=== PATIENT | female | born 1985 | race Hispanic/Latino ===

== ENCOUNTER 2017-12-15 08:06 | Day surgery (SDC) | payer OTHER ==
[2017-12-11 10:38] LABS: Absolute Monocytes 0.3 K/uL (0.1-1.3); Absolute Neutrophil 2.1 K/uL (1.8-8.0); Basophils % 1.4 % (0-1.3); Eosinophils % 1.1 % (0-4.4); Hematocrit 39.4 % (36.0-45.0); Lymphocytes % 45.3 % (15.3-44.8); MCH 26.8 pg (27.0-35.0); MPV 10.1 fL (7.6-11.3); Monocytes % 6.5 % (3.3-12.3); RBC Red Blood Cell Count 4.69 M/uL (3.86-4.86)
[2017-12-11 11:03] LABS: Potassium 3.9 mmol/L (3.5-5.1)
[2017-12-11 11:16] LABS: Albumin 4.1 g/dL (3.4-5.0); Bilirubin Direct 0.2 mg/dL (0-0.2); Bilirubin Total 1.2 mg/dL (0.2-1.0); Protein, Total 8.1 g/dL (6.4-8.2)
[2017-12-15] MEDS ORDERED: CEFOXITIN/SWI 1gm 1 GM/10 ML SYR ONE (08:32)
[2017-12-15] MEDS: Ringers Lactate 1,000 ML IV ONE ×2 (08:43→09:36)
[2017-12-15] MEDS ORDERED: BUPIVACAINE 0.5% PF 10 ML VIAL ONE ×2 (08:52→09:38)
[2017-12-15] MEDS ORDERED: PROPOFOL 200 MG/20 ML VIAL IV ONE (09:17)
[2017-12-15] MEDS ORDERED: LIDOCAINE 2% MPF 5 ML VIAL ONE (09:18)
[2017-12-15] MEDS ORDERED: MIDAZOLAM HCL 2 MG/2 ML INJ ONE (09:18)
[2017-12-15] MEDS ORDERED: FENTANYL CITR 100 MCG/2 ML ONE (09:19)
[2017-12-15] MEDS ORDERED: ONDANSETRON HCL 40 MG/20 ML VIAL ONE (09:20)
[2017-12-15] MEDS ORDERED: ROCURONIUM 50 MG/5 ML VIAL IV ONE (09:20)
[2017-12-15] MEDS ORDERED: DEXAMETHASONE 10 MG/ML VIAL ONE (10:01)
[2017-12-15] MEDS ORDERED: Phenylephrine HCl 10 MG/ML 1 ML VIAL ONE (10:30)
[2017-12-15] MEDS ORDERED: GLYCOPYRROLATE 0.2 MG/ML SYR ONE (10:41)
[2017-12-15] MEDS ORDERED: NEOSTIGMINE 1 MG/ML -5 ML SYRINGE ONE (10:45)
--- NOTE | 2017-12-15 10:51 | P.BOP ---
Preoperative diagnosis: acute cholecystitis, Symptomatic cholelithiasis Postoperative diagnosis: same Primary procedure: Laparoscopic cholecystectomy Parts Counterperson: Christa Mesa (Mary) Estimated blood loss: <10cc Specimen: gb Findings: acute cholecystitis, Symptomatic cholelithiasis Anesthesia: General Complications: None Transferred to: Recovery Room Condition: Good
[2017-12-15] MEDS ORDERED: MEPERIDINE HCL 25 MG/0.5 ML ONE (10:58)
[2017-12-15] MEDS ORDERED: MEPERIDINE HCL 25 MG/0.5 ML IV ONE (10:58)
[2017-12-15] MEDS ORDERED: Ringers Lactate 1,000 ML IV ONE (11:00)
[2017-12-15 12:08] VITALS: TEMP 97.5
[2017-12-15] MEDS ORDERED: CODEINE 30MG/APAP 300MG TAB ONE (12:27)
[2017-12-15 12:41] VITALS: BP 102/61; O2SAT 100
--- NOTE | 2017-12-15 21:48 | OP ---
Date of Procedure: 12/15/2017 Surgeon: Jose Richmond MD [employer] Crew Chief: EDITH Vidal. Preoperative Diagnoses: Acute cholecystitis, symptomatic cholelithiasis. Postoperative Diagnoses: Acute cholecystitis, symptomatic cholelithiasis. Procedure: Laparoscopic cholecystectomy. Estimated Blood Loss: Less than 10 cc. Specimen: Gallbladder. Finding: Acute cholecystitis and symptomatic cholelithiasis. Anesthesia: General plus local. Indication: This is a case of a 32-year-old patient, who comes to us with above diagnosis. Fully ex plained the benefits, alternatives, and risks of laparoscopic, possible open cholecystectomy, which i nclude, but not limited to infection, bleeding, damage to adjacent structures, anesthesia complicatio n, choledocholithiasis, bile leak, pancreatitis, RI, and even . She also understands this may n ot relieve any symptoms. She might need more than one surgical intervention. She understood. Darlin d a consent. Description Of Procedure: The patient was brought to the operating room, placed in supine position. Anesthesia was done without complication. Abdominal area was prepped and draped in a sterile fashio n. Marcaine 0.5% injected for local anesthetic, followed by sharp incision of skin in the infraumbil ical region. Incision was carried down to fascia, which was opened under direct vision. Peritoneum was encountered, opened under direct vision. Vicryl #1 placed inside the fascia. Harjinder trocar was carefully introduced. No bleeding was obtained. After that, I placed 3 more trocars, 5 mm each one of them under direct visualization in the right upper quadrant. Grasper placed in the fundus of the gallbladder, another grasper in the infundibulum. The gallbladder was retracted in the inferolateral fashion exposing the triangle of Calot and obtaining critical view of safety. The cystic duct and c ystic artery were clearly isolated free circumferentially and a connection between those and the gall bladder was clearly identified. I proceeded to ligate those by using at least 3 clips proximal, 1 cl ip distal, ligation in middle. Same was done with the cystic artery. No bile leak. No bleeding. T he gallbladder was removed from liver using Bovie cauterizer and removed from abdominal cavity using an EndoCatch through the umbilical incision. The area was inspected once again. No bile leak. No b leeding. Gallbladder was removed. The gallbladder fossa looked intact with no bleeding. At that mo ment, I proceeded to remove the trocars under direct vision. Deflated pneumoperitoneum. Closed the fascia with #1 Vicryl. Irrigated subcu tissue, closed that with 3-0 chromic and skin in a subcu subc uticular fashion with 3-0 chromic and Steri-Strips on top. Sponge count and instrument counts were c orrect. The patient tolerated the procedure well. The patient was sent to recovery in stable condit ion. SCHUYLER/JETT Voice ID: [id number] Report ID: [id number]
--- NOTE | 2017-12-15 21:54 | DS ---
Date of Discharge: 12/15/2017 Diagnoses: Acute cholecystitis, symptomatic cholelithiasis. Procedure: Laparoscopic cholecystectomy. Disposition: Home. Activity: As tolerated. No heavy lifting. Followup: Follow up in my office in 1 week. Call for appointment [phone]. Keep area dry for 48 ho urs, then may shower. Keep Steri-Strips intact. Medications: Include Tylenol No. 3 q.4 hours p.r.n. pain and a Bactrim-DS p.o. b.i.d. SCHUYLER/JETT Voice ID: [id number] Report ID: [id number]
== END 2017-12-15 13:28 | disposition home or self-care (01) ==
LOC: OR 08:06
PROVIDERS: ATTEND Surgery
PROC: 0FT44ZZ Resection of Gallbladder, Percutaneous Endoscopic Approach (ICD-10-PCS; principal; 2017-12-15 09:45)
DX: K80.00 Calculus of gallbladder with acute cholecystitis without obstruction (principal); K21.9 Gastro-esophageal reflux disease without esophagitis
CPT/HCPCS: 36415; 80048; 80076; 81025; 82150; 83690; 85025; 88304; J1100; J2175; J2250; J2370; J2405; J2710; J3010

== ENCOUNTER 2023-12-07 13:37 | Emergency (ER) | payer OTHER ==
[2023-12-07] MEDS ORDERED: MORPHINE 4 MG/ML SYR ONE (14:16)
[2023-12-07] MEDS ORDERED: ONDANSETRON 4 MG/2 ML VIAL ONE (14:16)
[2023-12-07] MEDS ORDERED: NA CHLORIDE 0.9% 1,000 ML ONE (14:16)
[2023-12-07 14:44] LABS: Absolute Basophils 0.1 K/uL (0-0.5); Absolute Lymphocytes (CBC) 2.1 K/uL (0.7-4.9); Absolute Monocytes 0.4 K/uL (0.1-1.3); Absolute Neutrophil 8.4 K/uL (1.8-8.0); Basophils % 0.7 % (0-1.3); Eosinophils % 0.1 % (0-4.4); Hematocrit 41.9 % (36.0-45.0); Hemoglobin 13.8 g/dL (12.0-15.0); Lymphocytes % 19.3 % (15.3-44.8); MCH 27.9 pg (27.0-35.0); MCV 84.4 fL (80-100); MPV 8.6 fL (7.6-11.3); Monocytes % 3.8 % (3.3-12.3); Neutrophils % 76.1 % (41.7-73.7); Platelets 270 thou/uL (152-406); RBC Red Blood Cell Count 4.96 M/uL (3.86-4.86); Red Cell Distribution Width 13.4 % (12.1-15.2)
[2023-12-07 14:56] LABS: Albumin 3.8 g/dL (3.4-5.0); Albumin/Globulin Ratio 0.9 (1.1-1.8); Anion Gap 10.1 mEq/L (5.0-15.0); Bilirubin Total 1.4 mg/dL (0.2-1.0); Globulin 4.2 g/dL (2.3-3.5); Potassium 3.1 mEq/L (3.5-5.1)
[2023-12-07 14:57] LABS: Specific Gravity > 1.030 (1.005-1.030); Urine Bacteria None Seen /HPF (<20); Urine Bilirubin NEGATIVE (Negative); Urine Blood 2+ (Negative); Urine Clarity Extremely Turbid (Clear); Urine Color Yellow (Yellow); Urine Culture Reflex Order NOT NEEDED; Urine Glucose NEGATIVE (Negative); Urine Ketones 1+ (Negative); Urine Microscopic Reflex YN ORDER UMIC; Urine Mucus 4+ /HPF (None Seen); Urine Nitrite NEGATIVE (Negative); Urine Protein 1+ (Negative); Urine RBC >50 /HPF (None Seen); Urine Urobilinogen 1+ (Normal); Urine WBC None Seen /HPF (<5)
[2023-12-07 15:02] LABS: Specific Gravity > 1.030 (1.005-1.030)
--- NOTE | 2023-12-07 15:59 | RAD REPORT ---
EXAM DESCRIPTION: CTAbdomen Pelvis W Contrast - 12/07/2023 3:48 pm CLINICAL HISTORY: ABD PAIN COMPARISON: No comparisons TECHNIQUE: CT of the abdomen and pelvis was performed with IV contrast. All CT scans are performed using dose optimization technique as appropriate and may include automated exposure control or mA/KV adjustment according to patient size. FINDINGS: Lower chest: No acute abnormality. Liver: No acute abnormality or suspicious lesions. Biliary: Cholecystectomy. Extrahepatic biliary duct dilatation may be related to the postcholecystect neri state. Common bile duct measures 10 millimeters . Stomach: No significant focal abnormality. Duodenum: No significant focal abnormality. Pancreas: No significant abnormality. Spleen: No significant abnormality. Adrenal: No suspicious lesions. Kidney/ureter: Mild right-sided hydroureteronephrosis secondary to a 4 mm stone in the right distal u reter near the UVJ. Additional bilateral nonobstructing renal calculi noted. Retroperitoneum: No retroperitoneal adenopathy. Vascular: No aneurysm. Bowel: No significant focal abnormality. No appendicitis. Peritoneum: No ascites or free air. Tiny fat containing umbilical hernia. Bladder: Grossly unremarkable. Reproductive: Small uterine fibroids noted. Bones: No acute fracture. Other: n/a IMPRESSION: Mild right-sided hydroureteronephrosis secondary to a 4 mm stone in the right distal ure ter, just proximal to the UVJ. Additional small bilateral renal calculi noted. Extrahepatic biliary duct dilatation may be related to the postcholecystectomy state. Correlate with LFTs.
[2023-12-07] MEDS ORDERED: KETOROLAC 30 MG/ML INJ ONE (16:22)
--- NOTE | 2023-12-07 17:05 | ER ---
Nurse's Notes [facility] Name: Denise Norman Age: 38 yrs Sex: Female : 1985 Arrival Date: 12/07/2023 Time: 13:37 Bed 3 Private MD: Diagnosis: Calculus of ureter Presentation: 12/06 13:49 Chief complaint: Patient states: Abdominal pain for 1 day. Urinary frequency noted. No ll1 fever. Coronavirus screen: Client denies travel out of the [place] in the last 14 days. At this time, the client does not indicate any symptoms associated with coronavirus-19. Ebola Screen: Patient denies travel to an Ebola-affected area in the 21 days before illness onset. Initial Sepsis Screen: Does the patient meet any 2 criteria? No. Patient's initial sepsis screen is negative. Does the patient have a suspected source of infection? No. Patient's initial sepsis screen is negative. Risk Assessment: Do you want to hurt yourself or someone else? Patient reports no desire to harm self or others. Onset of symptoms was December 07, 2023. 13:49 Method Of Arrival: Ambulatory ll1 13:49 Acuity: MONY 3 ll1 Triage Assessment: 13:49 General: Appears uncomfortable, Behavior is calm, cooperative, appropriate for age. ll1 Pain: Complains of pain in abdomen Pain currently is 9 out of 10 on a pain scale. GI: Reports lower abdominal pain, upper abdominal pain. : Reports urinary frequency. Historical: - Allergies: 13:48 No Known Allergies; ll1 - Home Meds: 13:48 Lexapro 5 mg Oral tablet [Active]; conrtol pills [Active]; ll1 - PMHx: 13:48 None; ll1 - PSHx: 13:48 Cholecystectomy; ll1 - Immunization history:: Adult Immunizations up to date. - Infectious Disease History:: Denies. - Social history:: Smoking status: Patient denies any tobacco usage or history of. - Family history:: not pertinent. Screenin:00 [facility] ED Fall Risk Assessment (Adult) History of falling in the last 3 months, kc6 including since admission No falls in past 3 months (0 pts) Confusion or Disorientation No (0 pts) Intoxicated or Sedated No (0 pts) Impaired Gait No (0 pts) Mobility Assist Device Used No (0 pt) Altered Elimination No (0 pt) Score/Fall Risk Level 3 or more points = High Risk. Abuse screen: Denies threats or abuse. Denies injuries from another. Nutritional screening: No deficits noted. Tuberculosis screening: No symptoms or risk factors identified. Assessment: 14:00 General: Appears in no apparent distress. uncomfortable, well groomed, well developed, kc6 Behavior is calm, cooperative, appropriate for age. Pain: Complains of pain in back and abdomen. Neuro: Level of Consciousness is awake, alert, obeys commands, Oriented to person, place, time, situation, Appropriate for age. Cardiovascular: Capillary refill < 3 seconds. Respiratory: Airway is patent Trachea midline Respiratory effort is even, unlabored, Respiratory pattern is regular, symmetrical. GI: Abdomen is flat, non-distended, Bowel sounds present X 4 quads. Abd is soft X 4 quads Patient currently denies diarrhea, nausea, vomiting. : Urine is cloudy, Reports burning with urination, pain in suprapubic area in lower back with urination, urinary frequency. EENT: No signs and/or symptoms were reported regarding the EENT system. Derm: No signs and/or symptoms reported regarding the dermatologic system. Skin is intact, is healthy with good turgor, Skin is pink, warm \T\ dry. Musculoskeletal: No signs and/or symptoms reported regarding the musculoskeletal system. Circulation, motion, and sensation intact. Capillary refill < 3 seconds, Range of motion: intact in all extremities. 15:00 Reassessment: Patient appears in no apparent distress at this time. No changes from kc6 previously documented assessment. Patient and/or family updated on plan of care and expected duration. Pain level reassessed. Patient is alert, oriented x 3, equal unlabored respirations, skin warm/dry/pink. 16:00 Reassessment: Patient appears in no apparent distress at this time. No changes from kc6 previously documented assessment. Patient and/or family updated on plan of care and expected duration. Pain level reassessed. Patient is alert, oriented x 3, equal unlabored respirations, skin warm/dry/pink. 17:19 Reassessment: Patient appears in no apparent distress at this time. No changes from kc6 previously documented assessment. Patient and/or family updated on plan of care and expected duration. Pain level reassessed. Patient is alert, oriented x 3, equal unlabored respirations, skin warm/dry/pink. Vital Signs: 13:49 BP 119 / 74; Pulse 94; Resp 17; Temp 97.1; Pulse Ox 96% ; Weight 68.04 kg; Height 5 ft. ll1 1 in. ; Pain 8/10; 17:19 BP 122 / 71; Pulse 75; Resp 18 S; Pulse Ox 97% on R/A; kc6 13:49 Body Mass Index 28.34 (68.04 kg, 154.94 cm) ll1 13:49 Pain Scale: Adult ll1 ED Course: 13:42 Patient arrived in ED. mg5 13:45 Gus Antonio MD is Attending Physician. rt 13:46 Arm band placed on. ll1 13:50 Triage completed. ll1 13:56 Rachel Ghosh, SHU is Primary Nurse. ap3 14:28 Inserted saline lock: 20 gauge in right forearm, using aseptic technique. Blood kc6 collected. 14:45 Patient has correct armband on for positive identification. Bed in low position. Call kc6 light in reach. Side rails up X 1. Adult w/ patient. Pulse ox on. NIBP on. Door closed. Noise minimized. Lights dimmed. Warm blanket given. Pillow given. 15:50 CT Abd/Pelvis - IV Contrast Only In Process Unspecified. EDMS 17:03 Jose Manuel Guidry MD is Referral Physician. rt 17:19 No provider procedures requiring assistance completed. IV discontinued, intact, kc6 bleeding controlled, No redness/swelling at site. Pressure dressing applied. Administered Medications: 14:28 Drug: Ondansetron IVP 4 mg IVP once; over 2 minutes Route: IVP; Site: right forearm; kc6 16:29 Follow up: Response: No adverse reaction kc6 14:28 Drug: morphine IVP or IV 4 mg IVP once over 4 mins Route: IVP; Infused Over: 4 mins; kc6 Site: right forearm; 16:29 Follow up: Response: No adverse reaction; RASS: Alert and Calm (0) kc6 14:28 Drug: NS 0.9% IV 1000 ml IV at 1 bolus Per protocol; 1000 mL bolus Route: IV; Rate: 1 kc6 bolus; Site: right forearm; 16:29 Follow up: Response: No adverse reaction; IV Status: Completed infusion; IV Intake: kc6 1000ml 16:29 Drug: Ketorolac IVP 15 mg IVP once Route: IVP; Site: right antecubital; kc6 17:19 Follow up: Response: No adverse reaction; Pain is decreased kc6 Medication: 17:20 VIS not applicable for this client. kc6 Intake: 16:29 IV: 1000ml; Total: 1000ml. kc6 Outcome: 17:04 Discharge ordered by . rt 17:19 Discharged to home ambulatory, with family, kc6 17:19 Condition: improved 17:19 Discharge instructions given to patient, family, Instructed on discharge instructions, follow up and referral plans. medication usage, Demonstrated understanding of instructions, follow-up care, medications, Prescriptions given X 4, 17:20 Patient left the ED. kc6 Signatures: Dispatcher [employer] EDRachel Shaver RN RN shay3 Teddy Hayward RN RN ll1 Sonja Gifford RN RN kc6 Gus Antonio MD MD rt [place], [place] mg5
--- NOTE | 2023-12-07 17:05 | EDPHYS ---
Physician Documentation [facility] Name: Denise Norman Age: 38 yrs Sex: Female : 1985 Arrival Date: 12/07/2023 Time: 13:37 Bed 3 Private MD: ED Physician Gus Antonio HPI: 12/06 14:06 This 38 yrs old Female presents to ER via Ambulatory with complaints of rt Abdominal Pain. 14:06 Patient presents to the ED with a right lower quadrant pain starting this morning. rt Patient was feeling well prior to the onset of symptoms. Denies nausea, vomiting, acute complaints. Symptoms are moderate in severity, no other aggravating or alleviating factors. Advil did not adequately improve her symptoms.. Historical: - Allergies: 13:48 No Known Allergies; ll1 - Home Meds: 13:48 Lexapro 5 mg Oral tablet [Active]; conrtol pills [Active]; ll1 - PMHx: 13:48 None; ll1 - PSHx: 13:48 Cholecystectomy; ll1 - Immunization history:: Adult Immunizations up to date. - Infectious Disease History:: Denies. - Social history:: Smoking status: Patient denies any tobacco usage or history of. - Family history:: not pertinent. ROS: 14:06 Constitutional: Negative for fever, chills, and weight loss, Cardiovascular: Negative rt for chest pain, palpitations, and edema, Respiratory: Negative for shortness of breath, cough, wheezing, and pleuritic chest pain, MS/Extremity: Negative for injury and deformity, Skin: Negative for injury, rash, and discoloration, Neuro: Negative for headache, weakness, numbness, tingling, and seizure, 14:06 Abdomen/GI: Positive for abdominal pain, Negative for nausea and vomiting, Exam: 14:06 Constitutional: This is a well developed, well nourished patient who is awake, alert, rt and in no acute distress. Head/Face: Normocephalic, atraumatic. Chest/axilla: Normal chest wall appearance and motion. Nontender with no deformity. No lesions are appreciated. Cardiovascular: Regular rate and rhythm with a normal S1 and S2. No gallops, murmurs, or rubs. Normal PMI, no JVD. No pulse deficits. Respiratory: Lungs have equal breath sounds bilaterally, clear to auscultation and percussion. No rales, rhonchi or wheezes noted. No increased work of breathing, no retractions or nasal flaring. Skin: Warm, dry with normal turgor. Normal color with no rashes, no lesions, and no evidence of cellulitis. MS/ Extremity: Pulses equal, no cyanosis. Neurovascular intact. Full, normal range of motion. Neuro: Awake and alert, GCS 15, oriented to person, place, time, and situation. Cranial nerves II-XII grossly intact. Motor strength 5/5 in all extremities. Sensory grossly intact. Cerebellar exam normal. Normal gait. 14:06 Abdomen/GI: Tenderness to the right lower quadrant without rebound, guarding, distention, Vital Signs: 13:49 BP 119 / 74; Pulse 94; Resp 17; Temp 97.1; Pulse Ox 96% ; Weight 68.04 kg; Height 5 ft. ll1 1 in. ; Pain 8/10; 17:19 BP 122 / 71; Pulse 75; Resp 18 S; Pulse Ox 97% on R/A; kc6 13:49 Body Mass Index 28.34 (68.04 kg, 154.94 cm) ll1 13:49 Pain Scale: Adult ll1 MDM: 13:55 Patient medically screened. rt 19:42 Differential Diagnosis Kidney stone, appendicitis, ovarian cyst. Data reviewed: vital rt signs, nurses notes, lab test result(s), radiologic studies. I considered the following discharge prescriptions or medication management in the emergency department Medications were administered in the Emergency Department. See MAR. Independent interpretation of the following test(s) in the Emergency Department CT Scan: My interpretation is Ureteral stone seen on interpretation of CT scan images. Counseling: I had a detailed discussion with the patient and/or guardian regarding the historical points, exam findings, and any diagnostic results supporting the discharge/admit diagnosis, lab results, radiology results, the need for outpatient follow up, to return to the emergency department if symptoms worsen or persist or if there are any questions or concerns that arise at home. Response to treatment: the patient's symptoms have markedly improved after treatment. 12/06 14:01 Order name: CBC with Diff; Complete Time: 15:06 rt 12/06 14:01 Order name: CMP; Complete Time: 15: rt 12/06 14:01 Order name: Lipase; Complete Time: 15:06 rt 12/06 14:01 Order name: Test, Urine; Complete Time: 15:06 rt 12/06 14:01 Order name: Urinalysis w/ reflexes; Complete Time: 15:06 rt 12/06 14:01 Order name: CT Abd/Pelvis - IV Contrast Only; Complete Time: 16:01 rt 12/06 14:01 Order name: IV Saline Lock; Complete Time: 14: rt 12/06 14:01 Order name: Labs collected and sent; Complete Time: 14:28 rt Administered Medications: 14:28 Drug: Ondansetron IVP 4 mg IVP once; over 2 minutes Route: IVP; Site: right forearm; kc6 16:29 Follow up: Response: No adverse reaction kc6 14:28 Drug: morphine IVP or IV 4 mg IVP once over 4 mins Route: IVP; Infused Over: 4 mins; kc6 Site: right forearm; 16:29 Follow up: Response: No adverse reaction; RASS: Alert and Calm (0) 6 14:28 Drug: NS 0.9% IV 1000 ml IV at 1 bolus Per protocol; 1000 mL bolus Route: IV; Rate: 1 kc6 bolus; Site: right forearm; 16:29 Follow up: Response: No adverse reaction; IV Status: Completed infusion; IV Intake: kc6 1000ml 16:29 Drug: Ketorolac IVP 15 mg IVP once Route: IVP; Site: right antecubital; kc6 17:19 Follow up: Response: No adverse reaction; Pain is decreased kc6 Disposition Summary: 12/07/23 17:04 Discharge Ordered Notes: Location: Home rt Problem: new rt Symptoms: have improved rt Condition: Stable rt Diagnosis - Calculus of ureter rt Followup: rt - With: Jose Manuel Guidry MD - When: 5 - 6 days - Reason: Discharge Instructions: - Discharge Summary Sheet rt - Kidney Stones rt Forms: - Medication Reconciliation Form rt - Antibiotic Education rt - Prescription Opioid Use rt - Patient Portal Instructions rt - Leadership Thank You Letter rt Prescriptions: - Flomax 0.4 mg Oral capsule - take 1 capsule ORAL route daily; 14 capsule; Refills: 0, Product Selection rt Permitted - KETORALAC 10 mg tab - take 1 tablet ORAL route every 8 hours; 10 tablet; Refills: 0, Product rt Selection Permitted - acetaminophen-codeine 300-30 mg Oral tablet - take 1 tablet ORAL route every 4 to 6 hours as needed for pain; 15 tablet; rt Refills: 0, Product Selection Permitted - ondansetron 4 mg Oral Tablet,disintegrating - take 1 tablet ORAL route every 6 hours as needed for nausea; 18 tablet; rt Refills: 0, Product Selection Permitted Signatures: Dispatcher [employer] EDTeddy Arreguin RN RN ll1 Sonja Gifford RN RN kc6 Gus Antonio MD MD rt Corrections: (The following items were deleted from the chart) 14: 14:02 CBC+H.LAB.BRZ ordered. EDMS EDMS 14:02 14:02 COMPREHENSIVE METABOLIC PANEL+C.LAB.BRZ ordered. EDMS EDMS 14:02 14:02 LIPASE+C.LAB.BRZ ordered. EDMS EDMS 14:02 14:02 Test, Urine+UC.LAB.BRZ ordered. EDMS EDMS 14:02 14:02 Urinalysis+U.LAB.BRZ ordered. EDMS EDMS
[2023-12-07 23:07] VITALS: BP 122/71; TEMP 97.1; O2SAT 97
== END 2023-12-07 17:20 | disposition home or self-care (01) ==
LOC: ER 13:37
DX: N20.1 Calculus of ureter (principal)
CPT/HCPCS: 85025; 81001; 36415; 81025; 83690; 80053; 74177; Q9967; J2405; J7030; 99284